=== PATIENT | male | born 1955 | race Hispanic/Latino ===

== ENCOUNTER 2017-03-23 17:19 | Observation (INO) | payer BC ==
[~2017-03-23] VITALS: Ht 180.3 cm; Wt 86.2 kg
--- NOTE | 2017-03-23 17:30 | NUR ---
IMMEDIATELY TO TREATMENT AREA, TO BED, EKG IMMEDIATELY UPON ARRIVAL. DR. FORDE SUMMONED
[2017-03-23] MEDS ORDERED: METFORMIN500 MG PO (17:38)
[2017-03-23] MEDS ORDERED: LISINOPRIL10 MG PO (17:38)
[2017-03-23] MEDS ORDERED: GLIPIZIDE10 M2 PO (17:39)
[2017-03-23] MEDS ORDERED: GLIPIZIDE XL10 MG PO (17:39)
[2017-03-23 17:43] LABS: HEMATOCRIT 47.1 % (39.0-50.0); HEMOGLOBIN 16.5 g/dl (14.0-18.0); IMMATURE GRANULOCYTES 0.2 % (0.0-1.0); MEAN CELL VOLUME 85.9 fL CALC (80.0-100.0); MEAN CORPUSCULAR HGB 30.1 pG CALC (26.0-32.0); NEUT# 2.82 thou/uL (1.82-7.42); RED BLOOD COUNT 5.48 mill/uL (4.70-6.10); RED CELL DISTRI WIDTH 12.9 % (11.5-15.5)
--- NOTE | 2017-03-23 17:54 | NUR ---
PT RESTING COMFORTABLY ON STRETCHER WATCHING TV. PT DENIES CHEST PAIN. RESP EVEN AND UNLABORED. SKIN WARM AND DRY. PT A&O X3. SR ON [employer]. CALL LIGHT WITHIN REACH. PT STATES NO NEEDS AT THIS TIME.
[2017-03-23 18:01] LABS: ALBUMIN 4.6 g/dL (3.2-5.0); ALKALINE PHOSPHATASE 100 u/l (38-126); ANION GAP 15 (6-22 (CALC)); BILIRUBIN, TOTAL 0.7 mg/dL (0.0-1.4); BUN 16 mg/dL (8-23); BUN/CREATININE RATIO 23 (12-20 (CALC)); CALCIUM 9.6 mg/dL (8.4-10.2); CARBON DIOXIDE 24 mmol/l (22-30); CHLORIDE 104 mmol/l (95-108); CREATININE 0.7 mg/dL (0.7-1.3); GFR > 60 ML/MIN (>=60 (CALC)); GFR FOR AFR.AMER. > 60 ML/MIN (>=60 (CALC)); GLUCOSE 140 mg/dL (82-115); POTASSIUM 4.4 mmol/l (3.5-5.1); SGOT/AST 25 u/l (19-48); SGPT/ALT 30 u/l (11-66); SODIUM 139 mmol/l (137-146); TOTAL PROTEIN 8.3 g/dL (6.3-8.2)
[2017-03-23 18:12] LABS: MYOGLOBIN 21 ng/mL (0 - 121)
--- NOTE | 2017-03-23 18:34 | NUR ---
PT AGREEABLE FOR ADMISSION.
--- NOTE | 2017-03-23 18:45 | NUR ---
REPORT GIVEN TO AMADO PEARCE
--- NOTE | 2017-03-23 18:54 | NUR ---
REPORT GIVEN TO MICHELL PEARCE ON MS
--- NOTE | 2017-03-23 19:05 | NUR ---
CALLED TO SEE IF PT CAN COME UP AND NURSES STILL IN REPORT.
--- NOTE | 2017-03-23 19:15 | NUR ---
TRANSPORTED PT VIA STRETCHER WITH TELE TO ROOM 283. NO CHEST PAIN PT AMBULATED TO SCALE AND BED WITHOUT ANY PROBLEM.
[2017-03-23 19:23] VITALS: BP 127/60
--- NOTE | 2017-03-23 19:23 | NUR ---
PT. ARRIVED TO THE FLOOR VIA STRECTHER ACCOMPANIED BY ER NURSE. PT. STABLE. PT. ORIENTED TO CALL LIGHT, POC, AND ROOM, VERBALIZES UNDERSTANDING. ALL QUESTIONS ANSWERED. ADMISSION ASSESSMENT COMPLETED. IV SITE PATENT AND SL. TELEMETRY IN PLACE. PT. DENIES PAIN. VSS. PT. BROUGHT A DINNER TRAY. PT. ENCOURAGED TO CALL FOR ANY NEEDS. CALL LIGHT IS IN REACH. WILL CONTINUE TO MONITOR.
[2017-03-23 23:08] VITALS: BP 115/73
--- NOTE | 2017-03-23 23:25 | NUR ---
PT. SITTING UP IN BED WITH NO DISTRESS NOTED. DENIES NEEDS/PAIN. PT. UPDATED WITH LAB RESULTS. URINAL EMPTIED OF 275 OF DARK YELLOW URINE. PT. IS WAITING FOR DAUGHTER TO VISIT. PT. OFFERED SONATA TO ASSIST WITH SLEEP, DECLINES AT THIS TIME.WILL CONTINUE TO MONITOR. CALL LIGHT IS IN REACH.
--- NOTE | 2017-03-24 03:00 | NUR ---
PT. RESTING IN BED WITH NO DISTRESS NOTED WITH EYES CLOSED. RESP EVEN AND UNLABORED. CALL LIGHT IS IN REACH.
[2017-03-24 05:04] VITALS: BP 123/74
--- NOTE | 2017-03-24 07:00 | NUR ---
REPORT RECIEVED FROM RAMSES GALARZA; PT RESTING IN BED WITH EYES CLOSED; NO S/S OF DISTRESS NOTED; FALL PRECAUTIONS IN PLACE; CALL LIGHT WITHIN REACH; WILL CONTINUE TO MONITOR
[2017-03-24 08:46] VITALS: BP 112/66
[2017-03-24] MEDS ORDERED: ASPIRIN ADULT L81 M2 PO (11:44)
[2017-03-24] MEDS ORDERED: LEXAPRO10 MG PO (11:45)
[2017-03-24] MEDS ORDERED: JANUVIA100 MG PO (11:45)
--- NOTE | 2017-03-24 12:00 | NUR ---
PT SITTING UP IN BED; NO S/S OF DISTRESS NOTED; PT DENIES ANY CP AT THIS TIME; TELE IN PLACE; MD AT BEDSIDE TO DISCUSS POC AND DISCHARGE; CALL LIGHT WITHIN REACH; WILL CONTINUE TO MONITOR
--- NOTE | 2017-03-24 14:49 | NUR ---
Discharge instructions given. Patient verbalizes understanding of same. Discharged in stable condition via Wheelchair to Home with *Other. All belongings sent with pt.
== END 2017-03-24 14:48 | disposition home or self-care (01) | DRG 313 ==
LOC: ENPENDDIS → ED 17:19 → ED-I 18:01 → ED 18:34 → MS2 18:35
PROVIDERS: Emergency Medicine; ADMIT Internal Medicine; ATTEND Internal Medicine
DX: R07.89 Other chest pain (principal); I10 Essential (primary) hypertension; E11.9 Type 2 diabetes mellitus without complications; E78.5 Hyperlipidemia, unspecified; F43.9 Reaction to severe stress, unspecified; F32.9 Major depressive disorder, single episode, unspecified; Z63.4 Disappearance and death of family member
CPT/HCPCS: G0378